=== PATIENT | male | born 1940 | race Caucasian/White ===

== ENCOUNTER 2022-09-29 00:46 | Inpatient (IN) ==
[2022-09-30] MEDS: ACALABRUTINIB MALEATE 100 MG PO SCH ×3 (03:55→21:40)
[2022-09-30 07:37] LABS: Hematocrit 24.2 % (38-53); Hemoglobin 7.8 g/dL (13.2-16.3); Mean Corpuscular Hemoglobin 33.8 pg (27-33); Mean Corpuscular Hgb Conc 32.4 g/dL (31-36); Mean Corpuscular Volume 104.5 fL (80-97); Mean Platelet Volume 7.2 fL (7.5-11.2); Platelet Count 325 10^3/uL (150-450); Red Blood Count 2.31 10^6/uL (4.06-5.63); Red Cell Distribution Width 18.1 % (12-17); White Blood Count 73.2 10^3/uL (3.6-10.2)
[2022-09-30 07:52] LABS: Albumin 2.5 g/dL (3.2-5.2); Albumin/Globulin Ratio 0.9 (1-3); Calcium 8.9 mg/dL (8.6-10.3); Creatinine, Serum 0.75 mg/dL (0.67-1.17); Globulin 2.9 g/dL (2-4); Potassium 3.9 mmol/L (3.5-5.0); Total Bilirubin 0.6 mg/dL (0.2-1.0); Total Protein 5.4 g/dL (6.4-8.9); eGFR CKD-EPI 90.1 (>60)
[2022-09-30 08:57] LABS: Macrocytosis 1+
[2022-09-30 08:59] LABS: Anisocytosis 1+; Basophilic Stippling 1+
[2022-09-30 09:04] LABS: Acanthocytes 1+
[2022-09-30 09:05] LABS: Smudge Cells Present
[2022-09-30 09:06] LABS: ABS Lymphocytes 60.2 10^3/uL (1.0-4.8); ABS Monocytes 0.7 10^3/uL (0.0-1.1); ABS Neutrophils 12.2 10^3/uL (1.5-7.6); ABS Nucleated RBC 0.04 10^3/ul; Lymphocyte % 82.3 %
[2022-09-30 10:03] LABS: INR 1.31 (0.88-1.18)
[2022-09-30] MEDS: Nebivolol 2.5 mg TAB (NF) PO SCH ×2 (10:38→21:43)
[2022-09-30] MEDS: Timolol 0.5% OPTH.SOL BTL LEFT EYE SCH ×2 (12:55→21:36)
[2022-09-30 16:08] LABS: Body Fluid Appearance Bloody; Body Fluid Color Red; Body Fluid Source Pleural Fluid
[2022-09-30 17:05] LABS: Body Fluid WBC 9787 /mcL
[2022-09-30 17:14] LABS: Body Fluid Mono 2 %; Body Fluid Total Cells Counted 200
[2022-10-01 09:20] LABS: Calcium 8.7 mg/dL (8.6-10.3); Creatinine, Serum 0.74 mg/dL (0.67-1.17); Potassium 3.6 mmol/L (3.5-5.0); eGFR CKD-EPI 90.5 (>60)
[2022-10-01 09:32] LABS: Hematocrit 23.1 % (38-53); Hemoglobin 7.5 g/dL (13.2-16.3); Mean Corpuscular Hemoglobin 33.6 pg (27-33); Mean Corpuscular Hgb Conc 32.6 g/dL (31-36); Mean Platelet Volume 7.3 fL (7.5-11.2); Platelet Count 323 10^3/uL (150-450); Red Blood Count 2.24 10^6/uL (4.06-5.63); Red Cell Distribution Width 17.7 % (12-17); White Blood Count 54.6 10^3/uL (3.6-10.2)
[2022-10-01 09:58] LABS: Folate 15.91 ng/mL (5.90-24.80)
[2022-10-01 10:17] LABS: ABS Lymphocytes 45.1 10^3/uL (1.0-4.8); ABS Monocytes 0.4 10^3/uL (0.0-1.1); ABS Neutrophils 9.1 10^3/uL (1.5-7.6); ABS Nucleated RBC 0.12 10^3/ul; Eosinophil % 0.1 %; Lymphocyte % 82.5 %; Nucleated Red Blood Cells % 0.2 /100 WBC (0.0-0.4)
[2022-10-01] MEDS: Timolol 0.5% OPTH.SOL BTL LEFT EYE SCH ×2 (10:23→22:04)
[2022-10-01] MEDS: Nebivolol 2.5 mg TAB (NF) PO SCH ×2 (10:25→22:06)
[2022-10-01] MEDS: ACALABRUTINIB MALEATE 100 MG PO SCH ×2 (10:31→22:07)
[2022-10-01] MEDS ORDERED: Enoxaparin 80 MG/0.8 ML SYR SUBCUT ONE (14:49)
[2022-10-02 05:40] LABS: Hematocrit 20.8 % (38-53); Hemoglobin 6.8 g/dL (13.2-16.3); Mean Corpuscular Hemoglobin 33.5 pg (27-33); Mean Corpuscular Hgb Conc 32.6 g/dL (31-36); Mean Corpuscular Volume 102.9 fL (80-97); Mean Platelet Volume 7.3 fL (7.5-11.2); Platelet Count 322 10^3/uL (150-450); Red Blood Count 2.02 10^6/uL (4.06-5.63); Red Cell Distribution Width 17.9 % (12-17); White Blood Count 49.5 10^3/uL (3.6-10.2)
[2022-10-02 05:44] LABS: Calcium 8.7 mg/dL (8.6-10.3); Creatinine, Serum 0.65 mg/dL (0.67-1.17); Potassium 4.2 mmol/L (3.5-5.0); eGFR CKD-EPI 94.1 (>60)
[2022-10-02 08:22] LABS: ABS Lymphocytes 41.7 10^3/uL (1.0-4.8); ABS Monocytes 0.4 10^3/uL (0.0-1.1); ABS Neutrophils 7.2 10^3/uL (1.5-7.6); ABS Nucleated RBC 0.18 10^3/ul; Eosinophil % 0.1 %; Lymphocyte % 84.4 %; Nucleated Red Blood Cells % 0.4 /100 WBC (0.0-0.4)
[2022-10-02 09:19] LABS: C Reactive Protein 131.58 mg/L (<8.01)
[2022-10-02] MEDS: Timolol 0.5% OPTH.SOL BTL LEFT EYE SCH ×2 (09:58→23:40)
[2022-10-02] MEDS: Nebivolol 2.5 mg TAB (NF) PO SCH ×2 (09:58→23:39)
[2022-10-02] MEDS: ACALABRUTINIB MALEATE 100 MG PO SCH ×2 (09:59→23:43)
[2022-10-02 14:55] LABS: Lactate Dehydrogenase, BF 499 U/L
[2022-10-02 15:37] LABS: Fluid Type, Protein, Total PLEURAL; Glucose, BF 145 mg/dL; Total Protein, BF 2.5 g/dL
[2022-10-02 18:33] LABS: Hematocrit 22.3 % (38-53); Hemoglobin 7.4 g/dL (13.2-16.3)
[2022-10-02 19:16] LABS: Body Fluid WBC 6379 /mcL
[2022-10-02 19:21] LABS: Body Fluid Appearance Bloody; Body Fluid Color Red; Body Fluid Source Pleural Fluid
[2022-10-02 19:53] LABS: Body Fluid Mono 19 %; Body Fluid Total Cells Counted 200
[2022-10-03 07:03] LABS: Hematocrit 25.5 % (38-53); Hemoglobin 8.5 g/dL (13.2-16.3); Mean Corpuscular Hemoglobin 32.7 pg (27-33); Mean Corpuscular Hgb Conc 33.3 g/dL (31-36); Mean Corpuscular Volume 98.1 fL (80-97); Mean Platelet Volume 7.3 fL (7.5-11.2); Platelet Count 345 10^3/uL (150-450); Red Cell Distribution Width 21.5 % (12-17); White Blood Count 47.4 10^3/uL (3.6-10.2)
[2022-10-03 07:19] LABS: Calcium 8.5 mg/dL (8.6-10.3); Creatinine, Serum 0.61 mg/dL (0.67-1.17); Magnesium 1.9 mg/dL (1.9-2.7); Potassium 4.5 mmol/L (3.5-5.0); eGFR CKD-EPI 95.9 (>60)
[2022-10-03] MEDS ORDERED: Magnesium Sulfate IV 1GM/100ML 1 GM/100 ML BAG IV ONE (07:42)
[2022-10-03 08:22] LABS: ABS Eosinophils 0.1 10^3/uL (0.0-0.5); ABS Lymphocytes 40.9 10^3/uL (1.0-4.8); ABS Monocytes 0.3 10^3/uL (0.0-1.1); ABS Neutrophils 6.1 10^3/uL (1.5-7.6); ABS Nucleated RBC 0.02 10^3/ul; Eosinophil % 0.1 %; Lymphocyte % 86.4 %
[2022-10-03] MEDS: Timolol 0.5% OPTH.SOL BTL LEFT EYE SCH (08:57)
[2022-10-03] MEDS: Nebivolol 2.5 mg TAB (NF) PO SCH (08:57)
[2022-10-03 09:25] LABS: Albumin, BF 1.3 g/dL; Fluid Type, Albumin PLEURAL
[2022-10-03 10:21] VITALS: BP 100/41
[2022-10-03] MEDS: ACALABRUTINIB MALEATE 100 MG PO SCH ×2 (11:27→11:36)
[2022-10-05 10:12] LABS: Fluid Type, Protein, Total PLEURAL; Total Protein, BF 2.5 g/dL
== END 2022-10-03 18:03 | disposition home or self-care (01) | DRG 189 ==
LOC: SUATTDRO 00:46 → OBSVTOIN 22:55 → MEDTELE 22:55 → SUATTDRO 22:55 → INTOOBSV 22:55
PROVIDERS: ADMIT Student in an Organized Health Care Education/Training Program; ATTEND Internal Medicine